=== PATIENT | female | born 1970 | race Caucasian/White ===

== ENCOUNTER → 2024-05-01 18:51 | Outpatient (REF) | payer OTHER, MEDICAID, SELFPAY | LOC: WDC 18:51 | PROVIDERS: ATTENDING PHYSICIAN Emergency Medicine | DX: Z12.31 Encounter for screening mammogram for malignant neoplasm of breast (principal) | CPT/HCPCS: 77063; 77067 ==

== ENCOUNTER → 2024-05-07 09:22 | Outpatient (REF) | payer OTHER, MEDICAID, SELFPAY | LOC: WDC 09:22 | PROVIDERS: ATTENDING PHYSICIAN Emergency Medicine | DX: R92.8 Other abnormal and inconclusive findings on diagnostic imaging of breast (principal) | CPT/HCPCS: 76642 ==

== ENCOUNTER → 2024-11-10 10:00 | Outpatient (REF) | payer OTHER, MEDICAID, SELFPAY | LOC: HWRAD 10:00 | PROVIDERS: ATTENDING PHYSICIAN Nurse Practitioner; FAMILY PHYSICIAN Emergency Medicine | DX: R35.0 Frequency of micturition (principal); R35.1 Nocturia | CPT/HCPCS: 76770; 76830; 76856 ==